=== PATIENT | female | born 1965 | race Caucasian/White ===

== ENCOUNTER 2017-02-15 19:37 | Emergency (ER) | payer MEDICAID ==
[2017-02-15 21:24] VITALS: BP 118/74
== END 2017-02-15 21:24 | disposition home or self-care (01) ==
LOC: ED 19:37
DX: L23.9 Allergic contact dermatitis, unspecified cause (principal)
CPT/HCPCS: J1100; J1200

== ENCOUNTER 2019-02-08 22:00 | Emergency (ER) | payer SELFPAY ==
[~2019-02-08] VITALS: Ht 157.5 cm; Wt 77.1 kg
[2019-02-08 22:03] VITALS: Ht 157.5 cm; Wt 77.1 kg
[2019-02-08 23:32] LABS: UA SPECIFIC GRAVITY 1.015 (1.005-1.035); microscopic required? YES; urine erythrocyte TRACE (NEGATIVE)
[2019-02-08 23:40] LABS: BASOPHIL % 0.7 % (0-2); RED CELL DISTRIBUTION WIDTH 11.9 % (11.5-14.5)
[2019-02-08 23:41] LABS: PLATELET COUNT 47 x10^3mcL (130-400)
[2019-02-09 00:14] LABS: AMPHETAMINE QUAL UR POSITIVE (See below)
[2019-02-09 00:37] LABS: SODIUM SERUM 138 mmol/L (136-145)
[2019-02-09 00:38] LABS: CARBON DIOXIDE 19.3 mmol/L (21-32); CHLORIDE SERUM 101 mmol/L (98-107); GLUCOSE SERUM 129 mg/dL (74-106); POTASSIUM SERUM 3.9 mmol/L (3.5-5.1)
[2019-02-09 00:39] LABS: ALBUMIN 4.4 g/dL (3.4-5.0); ALKALINE PHOSPHATASE 95 U/L (46-116); ALT/SGPT 56 U/L (14-59); AST/SGOT 55 U/L (15-37); BILIRUBIN TOTAL 0.9 mg/dL (0.20-1.00); CALCIUM 9.2 mg/dL (8.5-10.1); TOTAL PROTEIN, SERUM 8.9 g/dL (6.4-8.2)
[2019-02-09 00:49] LABS: CREATININE SERUM 0.6 mg/dL (0.6-1.0); GFR1 > 60 mL/min
[2019-02-09 01:18] VITALS: BP 145/71
== END 2019-02-09 01:29 | disposition home or self-care (01) ==
LOC: ED 22:00
PROVIDERS: Emergency Medicine
DX: F41.9 Anxiety disorder, unspecified (principal); F15.10 Other stimulant abuse, uncomplicated
CPT/HCPCS: 36415; J7030; Q0092